=== PATIENT | male | born 1990 | race Caucasian/White ===

== ENCOUNTER 2023-08-23 08:22 | Emergency (ER) | payer OTHER ==
[~2023-08-23] VITALS: Ht 170.2 cm; Wt 93.0 kg
[2023-08-23 08:33] VITALS: O2SAT 97
== END 2023-08-23 09:45 | disposition home or self-care (01) ==
LOC: ER 08:26
DX: S93.492A Sprain of other ligament of left ankle, initial encounter (principal); X50.1XXA Overexertion from prolonged static or awkward postures, initial encounter; Y93.89 Activity, other specified; Y92.89 Other specified places as the place of occurrence of the external cause; Y99.8 Other external cause status
CPT/HCPCS: 73610; A4606; A4663